=== PATIENT | male | born 2000 | race African-American/Black ===

== ENCOUNTER 2024-01-09 08:32 | Emergency (ER) | payer OTHER ==
[~2024-01-09] VITALS: Ht 193 cm; Wt 81.6 kg
[2024-01-09 08:45] VITALS: O2SAT 98
[2024-01-09] MEDS ORDERED: BO1 TP (10:01)
[2024-01-09] MEDS ORDERED: NAPR-681 MT (10:01)
[2024-01-09] MEDS: KETOROLAC 60MG/2ML VIAL IM ONE (10:19)
[2024-01-09 10:21] VITALS: BP 108/67; PULSE 69; RESP 63; TEMP 98.7
[2024-01-09] MEDS: BACITRACIN ZINC OINT UDPKT TOP ONE (10:21)
== END 2024-01-09 10:27 | disposition home or self-care (01) ==
LOC: ER 08:32
DX: S63.502A Unspecified sprain of left wrist, initial encounter (principal); Y04.0XXA Assault by unarmed brawl or fight, initial encounter; Y93.89 Activity, other specified; Y92.89 Other specified places as the place of occurrence of the external cause; Y99.8 Other external cause status
CPT/HCPCS: 99283; 73130; 96372; J1885

== ENCOUNTER 2025-08-31 00:55 | Emergency (ER) | payer MEDICAID ==
[~2025-08-31] VITALS: Ht 193 cm; Wt 85.0 kg
[~2025-08-31 00:55] MED LIST: BO1 TP; NAPR-681 MT
[2025-08-31 00:57] VITALS: O2SAT 98
[2025-08-31 01:01] VITALS: BP 108/49; PULSE 86; RESP 16; TEMP 37; O2SAT 98
[2025-08-31] MEDS ORDERED: BO1 TP (01:34)
[2025-08-31] MEDS ORDERED: NAPR-1176 MT (01:34)
[2025-08-31] MEDS: IBUPROFEN 400MG TABLET PO ONE (01:39)
== END 2025-08-31 02:10 | disposition home or self-care (01) ==
LOC: ER 00:55
DX: T23.152A Burn of first degree of left palm, initial encounter (principal); T31.0 Burns involving less than 10% of body surface; X58.XXXA Exposure to other specified factors, initial encounter; Y93.89 Activity, other specified; Y92.89 Other specified places as the place of occurrence of the external cause; Y99.8 Other external cause status
CPT/HCPCS: 99283